=== PATIENT | male | born 1985 | race African-American/Black ===

== ENCOUNTER 2019-05-27 05:22 | Emergency (ER) | payer OTHER ==
[~2019-05-27] VITALS: Ht 182.9 cm; Wt 77.1 kg
[2019-05-27 06:49] VITALS: BP 150/86
== END 2019-05-27 08:21 | disposition home or self-care (01) ==
LOC: ER 05:22
DX: J32.9 Chronic sinusitis, unspecified (principal); R07.0 Pain in throat; F17.210 Nicotine dependence, cigarettes, uncomplicated
CPT/HCPCS: 70490